=== PATIENT | male | born 1955 | race Two or more races ===

== ENCOUNTER 2022-05-10 17:32 | Emergency (ER) | payer OTHER ==
[2022-05-10 17:48] VITALS: RESP 20; TEMP 98.1; BMI 26.9
[2022-05-10] MEDS ORDERED: FUROSEMIDE 40 MG/4 ML INJECTABLE VIAL IVPUSH ONE (20:43)
[2022-05-10] MEDS ORDERED: FUROSEMIDE 40 MG/4 ML INJECTABLE VIAL ONE (21:14)
[2022-05-10 22:16] LABS: BASO % 0.7 % (0-2.0); EOS % 4.8 % (0-4.5); HEMATOCRIT 39.3 % (35.4-49); HEMOGLOBIN 12.6 GM/dL (11.7-16.9); LYMPH % 15.9 % (8-40); MCH 27.7 pg (25.7-33.7); MEAN CELL VOLUME 86.5 fl (80-96); MEAN PLT VOLUME 8.1 fl (7.5-11.1); MONO % 11.1 % (3.8-10.2); NEUT % 67.5 % (42.8-82.8); PLATELET COUNT 299 10^3/uL (134-434); RBC 4.54 M/mm3 (4.00-5.60); RDW 13.3 % (11.9-15.9); WHITE BLOOD COUNT 8.5 K/mm3 (4.0-10.0)
[2022-05-10 22:37] LABS: CALCIUM 8.6 mg/dL (8.5-10.1)
[2022-05-10 22:38] LABS: ALBUMIN 3.4 g/dl (3.4-5.0); BLOOD UREA NITROGEN 22.2 mg/dL (7-18)
[2022-05-10 22:41] LABS: CREATININE 0.9 mg/dL (0.55-1.3)
[2022-05-10 22:43] LABS: BILIRUBIN,TOTAL 0.5 mg/dL (0.2-1); TOT PROT 6.7 g/dl (6.4-8.2)
[2022-05-10 22:46] LABS: N-TERMINAL BNP 386.1 pg/ml (5-125)
[2022-05-10] MEDS ORDERED: SODIUM CHLORIDE 0.9% 500 ML INFUS.BAG IV ONE (23:47)
[2022-05-10 23:56] VITALS: BP 141/80; PULSE 86
== END 2022-05-11 00:08 | disposition home or self-care (01) ==
LOC: JER 17:32
PROC: 3E033GC Introduction of Other Therapeutic Substance into Peripheral Vein, Percutaneous Approach (ICD-10-PCS; principal; 2022-05-10)
DX: R22.42 Localized swelling, mass and lump, left lower limb (principal); R22.41 Localized swelling, mass and lump, right lower limb
CPT/HCPCS: 36415; 71046-TC-FY; 80053; 83880; 84484; 85025; 93005; 93010; 93970-TC; 96374; 99285-25